=== PATIENT | male | born 1955 | race Caucasian/White ===

== ENCOUNTER 2016-08-12 12:27 | Inpatient (IN) | payer BC ==
[2016-08-12] MEDS ORDERED: Aspirin 81 MG Tab.Chew PO ONE (12:31)
--- NOTE | 2016-08-12 12:47 | EDM.PDOC ---
[id number] Time Seen by Provider: 08/12/16 12:30 Source of Information: Reports: Patient History Limitations: Reports: No Limitations Mid-Sternal Chest Pain Score (Numeric/FACES): 2 - Related Data Allergies Allergy/AdvReac Type Severity Reaction Status Date / Time No Known Allergies Allergy Verified 08/12/16 13:12 Home Meds: Home Meds . [No Known Home Meds] 08/12/16 [History] ED ROS GENERAL - Review of Systems Review Of Systems: See Below (History of present illness) ED EXAM, GENERAL - Physical Exam Exam: See Below (History of present illness) Exam Limited By: No Limitations General Appearance: Alert Course - Vital Signs Last Recorded V/S: Last Vital Signs Temp 36.6 C 08/13/16 08:00 Pulse 58 L 08/13/16 08:21 Resp 14 08/13/16 09:00 BP 109/70 08/13/16 09:00 Pulse Ox 99 08/13/16 09:00 - Orders/Labs/Meds Labs: Laboratory Tests 08/12/16 08/12/16 08/12/16 Range/Units 12:25 12:25 12:25 WBC 12.29 H (4.0-11.0) K/uL RBC 5.04 (4.50-5.90) M/uL Hgb 14.3 (13.0-17.0) g/dL Hct 44.0 (38.0-50.0) % MCV 87.3 (80.0-98.0) fL MCH 28.4 (27.0-32.0) pg MCHC 32.5 (31.0-37.0) g/dL RDW Std Deviation 43.1 (28.0-62.0) fl RDW Coeff of Elli 14 (11.0-15.0) % Plt Count 240 (150-400) K/uL MPV 9.30 (7.40-12.00) fL Neut % (Auto) 66.6 (48.0-80.0) % Lymph % (Auto) 24.6 (16.0-40.0) % [place] % (Auto) 6.8 (0.0-15.0) % Eos % (Auto) 1.6 (0.0-7.0) % Baso % (Auto) 0.4 (0.0-1.5) % Neut # (Auto) 8.2 H (1.4-5.7) K/uL Lymph # (Auto) 3.0 H (0.6-2.4) K/uL [place] # (Auto) 0.8 (0.0-0.8) K/uL Eos # (Auto) 0.2 (0.0-0.7) K/uL Baso # (Auto) 0.1 (0.0-0.1) K/uL Nucleated RBC % 0.0 /100WBC Nucleated RBCs # 0 K/uL Sodium 137 (136-146) mmol/L Potassium 4.2 (3.5-5.1) mmol/L Chloride 105 (98-110) mmol/L Carbon Dioxide 23 (21-31) mmol/L BUN 13 (6.0-23.0) mg/dL Creatinine 0.9 (0.6-1.5) mg/dL Est Cr Clr Drug Dosing 71.26 mL/min Estimated GFR (MDRD) > 60.0 ml/min Glucose 93 (60-110) mg/dL Calcium 9.3 (8.8-10.8) mg/dL Total Bilirubin 0.3 (0.1-1.5) mg/dL AST 13 (5-40) IU/L ALT 12 (8-54) IU/L Alkaline Phosphatase 63 (40-150) Troponin I < 0.10 (0.0-0.29) NG/ML Total Protein 7.6 (6.0-8.0) g/dL Albumin 4.2 (3.4-4.8) g/dL Globulin 3.4 (2.0-3.5) g/dL Albumin/Globulin Ratio 1.2 L (1.3-2.8) Triglycerides (10-190) mg/dL Cholesterol (131-240) mg/dL LDL Cholesterol, Calc (60-180) mg/dL VLDL Cholesterol (5-55) mg/dL HDL Cholesterol (40-80) mg/dL Cholesterol/HDL Ratio (3.3-6.0) // Range/Units 12:25 WBC (4.0-11.0) K/uL RBC (4.50-5.90) M/uL Hgb (13.0-17.0) g/dL Hct (38.0-50.0) % MCV (80.0-98.0) fL MCH (27.0-32.0) pg MCHC (31.0-37.0) g/dL RDW Std Deviation (28.0-62.0) fl RDW Coeff of Elli (11.0-15.0) % Plt Count (150-400) K/uL MPV (7.40-12.00) fL Neut % (Auto) (48.0-80.0) % Lymph % (Auto) (16.0-40.0) % [place] % (Auto) (0.0-15.0) % Eos % (Auto) (0.0-7.0) % Baso % (Auto) (0.0-1.5) % Neut # (Auto) (1.4-5.7) K/uL Lymph # (Auto) (0.6-2.4) K/uL [place] # (Auto) (0.0-0.8) K/uL Eos # (Auto) (0.0-0.7) K/uL Baso # (Auto) (0.0-0.1) K/uL Nucleated RBC % /100WBC Nucleated RBCs # K/uL Sodium (136-146) mmol/L Potassium (3.5-5.1) mmol/L Chloride (98-110) mmol/L Carbon Dioxide (21-31) mmol/L BUN (6.0-23.0) mg/dL Creatinine (0.6-1.5) mg/dL Est Cr Clr Drug Dosing mL/min Estimated GFR (MDRD) ml/min Glucose (60-110) mg/dL Calcium (8.8-10.8) mg/dL Total Bilirubin (0.1-1.5) mg/dL AST (5-40) IU/L ALT (8-54) IU/L Alkaline Phosphatase (40-150) Troponin I (0.0-0.29) NG/ML Total Protein (6.0-8.0) g/dL Albumin (3.4-4.8) g/dL Globulin (2.0-3.5) g/dL Albumin/Globulin Ratio (1.3-2.8) Triglycerides 109 (10-190) mg/dL Cholesterol 243 H (131-240) mg/dL LDL Cholesterol, Calc 174 (60-180) mg/dL VLDL Cholesterol 22 (5-55) mg/dL HDL Cholesterol 47 (40-80) mg/dL Cholesterol/HDL Ratio 5.2 (3.3-6.0) Meds: Medications Discontinued Medications Generic Name Dose Route Start Last Admin Trade Name Freq PRN Reason Stop Dose Admin Aspirin 324 mg 08/12/16 12:31 08/12/16 12:46 Aspirin PO 08/12/16 12:32 324 mg ONETIME ONE Administration Aspirin 81 mg 08/13/16 09:00 08/13/16 08:21 Aspirin PO 81 mg DAILY [facility] Administration Atorvastatin Calcium 80 mg 08/12/16 21:00 08/12/16 20:02 Lipitor PO 80 mg BEDTIME [facility] Administration Clopidogrel Bisulfate 600 mg 08/12/16 18:13 08/12/16 19:17 Plavix PO 08/12/16 18:14 600 mg ONETIME ONE Administration Clopidogrel Bisulfate 75 mg 08/13/16 09:00 08/13/16 08:21 Plavix PO 75 mg DAILY [facility] Administration Enoxaparin Sodium 40 mg 08/12/16 21:00 Lovenox SUBCUT Q12HR [facility] Heparin Sodium (Porcine) 5,000 units 08/12/16 18:30 08/12/16 19:17 Heparin Sodium IV 08/12/16 18:31 5,000 units ONETIME ONE Administration Heparin Sodium (Porcine) 1,000 units 08/13/16 01:02 08/13/16 01:12 Heparin Sodium IVPUSH 08/13/16 01:03 1,000 units .BOLUS ONE Administration Heparin Sodium (Porcine) 1,000 unit 08/13/16 08:15 Heparin Sodium IV 08/13/16 08:16 ONETIME ONE Heparin Sodium (Porcine) 1,000 units 08/13/16 08:15 08/13/16 08:20 Heparin Sodium IV 08/13/16 08:16 1,000 units ONETIME ONE Administration Heparin Sodium/Dextrose 25,000 units in 500 mls @ 16.44 mls/hr 08/12/16 18:15 Heparin 25,000 Units In D5w 500 Ml IV TITRATE JONO Protocol 12 UNITS/KG/HR Heparin Sodium (Porcine) 25, 505 mls @ 16.6 mls/hr 08/12/16 19:06 08/13/16 08 :20 000 units/ Dextrose/Water IV 16 units/kg/hr TITRATE JONO 22.13 mls/hr Protocol Titration 12 UNITS/KG/HR Metoprolol Tartrate 25 mg 08/12/16 21:00 08/13/16 08:21 Lopressor PO 25 mg Q12HR JONO Administration Nitroglycerin 1 gm 08/12/16 12:59 08/12/16 13:03 Nitro-Bid 2% TOP 08/12/16 13:00 1 gm ONETIME ONE Administration Departure - Departure Time of Disposition: 09:00 Disposition: Refer to Observation Reason for Transfer *Q: Other Condition: Good Clinical Impression: Chest pain ED HISTORY OF PRESENT ILLNESS - General Chief Complaint: Chest Pain Stated Complaint: HEART COMPLICATIONS Time Seen by Provider: 08/12/16 12:30 Source of Information: Reports: Patient History Limitations: Reports: No Limitations - History of Present Illness INITIAL COMMENTS - FREE TEXT/NARRATIVE: HISTORY AND PHYSICAL: History of present illness: [61-year-old male with a very long history of smoking now presents emergency department complaining of chest pain. Patient has never had hypertension high cholesterol diabetes and has no known family history of coronary artery disease except for one cousin. 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 He has no doctor here as he is from [place]. Mid chest pain is dull achy pain that is worse with exertion and associated with apheresis and shortness of breath but no nausea or vomiting. pain does not radiate. No productive cough or fever and no pleuritic pain. Review of systems: As per history of present illness and below otherwise all systems reviewed and negative. Past medical history: As per history of present illness and as reviewed below otherwise noncontributory. Surgical history: As per history of present illness and as reviewed below otherwise noncontributory. Social history: No reported history of drug or alcohol abuse. Family history: As per history of present illness and as reviewed below otherwise noncontributory. Physical exam: HEENT: Atraumatic, normocephalic, pupils reactive, negative for conjunctival pallor or scleral icterus, mucous membranes moist, throat clear, neck supple, nontender, trachea midline. Lungs: Clear to auscultation, breath sounds equal bilaterally, chest nontender. No Subcutaneous air Heart: S1S2, regular, negative for clicks, rubs, or JVD. Abdomen: Soft, nondistended, nontender. Negative for masses or hepatosplenomegaly. Negative for costovertebral tenderness. Pelvis: Stable nontender. Genitourinary: Deferred. Rectal: Deferred. Extremities: Atraumatic, negative for cords or calf pain. Neurovascular unremarkable. Neuro: Awake, alert, oriented. Motor and sensory unremarkable throughout. Exam nonfocal. Diagnostics: [EKG with normal sinus rhythm at 60 left axis deviation and no STEMI] Chest x-ray with chronic changes hyperinflation normal mediastinum and no cardiomegaly. Interpreted by me Troponin negative Therapeutics: [] Impression: [] Plan: [Signs and symptoms consistent with chest pain possible cardiac etiology in a patient with no prior cardiac workup and multiple risk factors as well as maleness and age of 61. She unremarkable. Aspirin given. Labs and troponin pending. Case discussed with Dr. Chu hospitalist information assurance officer who is aware of history and findings and agrees with observation telemetry admission to his service. Patient is stable smiling and comfortable appearing.] Definitive disposition and diagnosis as appropriate pending reevaluation and review of above. - Related Data Allergies/ADRs: Allergies Allergy/AdvReac Type Severity Reaction Status Date / Time No Known Allergies Allergy Verified 08/12/16 13:12 Home Meds: Home Meds . [No Known Home Meds] 08/12/16 [History]
[2016-08-12] MEDS ORDERED: Nitroglycerin 2% Oint 1 GM UD Packet TOP ONE (12:59)
--- NOTE | 2016-08-12 13:01 | CR ---
EXAMINATION: Portable chest radiograph. HISTORY: Chest pain. FINDINGS: The trachea is midline. The cardiomediastinal silhouette is within normal limits. No pulmonary infil trates, effusions or pneumothorax. Osseous structures appear unremarkable. IMPRESSION: No acute cardiopulmonary process.
[2016-08-12 13:15] LABS: CHLORIDE,CL 105 mmol/L (98-110); SODIUM,NA 137 mmol/L (136-146)
--- NOTE | 2016-08-12 14:21 | PCM.HP ---
H&P History of Present Illness - General Date of Service: 08/12/16 Admit Problem/Dx: Admission Diagnosis/Problem Admission Diagnosis/Problem Chest pain Source of Information: Patient History Limitations: Reports: No limitations - History of Present Illness Initial Comments - Free Text/Narative: 61 y o man with remote history of elevated cholesterol without therapy notes recnt onset of central chest pain, quite severe , associated with some weakness stopping him in his tracks and profuse diaphoresis, Came on climbing flight of stair to ta ke shower at truck stop Had to rest up before showering. Other times he had to lie down 15 minutes before pain let up. Not aware of any unusual heart action Duration of Symptoms: Reports: Minutes: (15-20) Quality: Reports: Ache, Dull Severity: severe Improves with: Reports: Rest Worsens with: Reports: None Associated Symptoms: Reports: diaphoresis, weakness Mid-Sternal Chest Pain Score (Numeric/FACES): 2 - Related Data Allergies/Adverse Reactions: Allergies Allergy/AdvReac Type Severity Reaction Status Date / Time No Known Allergies Allergy Verified 08/12/16 13:12 Home Medications: Home Meds . [No Known Home Meds] 08/12/16 [History] Past Medical History - Past Health History Medical/Surgical History: Denies Medical/Surgical History Musculoskeletal History: Reports: Back pain, chronic - Infectious Disease History Infectious Disease History: Reports: Chicken pox, Measles, Mumps Social & Family History - Family History Family Medical History: Noncontributory - Tobacco Use Smoking Status *Q: Current Every Day Smoker Years of Tobacco use: 15 Packs/Tins Daily: 1 - Alcohol Use Alcohol Use History: Yes Days Per Week of Alcohol Use: 1 - Recreational Drug Use Recreational Drug Use: No - Living Situation & Occupation 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, 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, 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) H&P Review of Systems - Review of Systems: Review Of Systems: See Below General: Reports: fatigue HEENT: Reports: no symptoms Pulmonary: Reports: No Symptoms Cardiovascular: Reports: chest pain Gastrointestinal: Reports: No symptoms Genitourinary: Reports: no symptoms Musculoskeletal: Reports: no symptoms Skin: Reports: no symptoms, diaphoresis Psychiatric: Reports: no symptoms Neurological: Reports: No Symptoms Hematologic/Lymphatic: Reports: no symptoms Immunologic: Reports: no symptoms Exam - Exam Exam: See Below - Vital Signs Vital Signs: Last Vital Signs Temp 36.8 C 08/12/16 12:29 Pulse 64 08/12/16 13:41 Resp 16 08/12/16 13:41 BP 126/80 08/12/16 13:41 Pulse Ox 99 08/12/16 13:41 Weight: 68.5 kg - Exam General: alert, oriented HEENT: Conjunctiva clear Neck: supple, 2+ carotid pulse wo bruit Lungs: Decreased breath sounds Cardiovascular: regular rate, regular rhythm Abdomen: normal bowel sounds, soft (Male) Exam: Deferred Rectal (Males) Exam: Deferred Back Exam: other (loss of lumbar lordosis) Extremities: normal inspection Skin: warm Neurological: cranial nerves intact Neuro Extensive - Mental Status: alert, oriented x3 Psychiatric: alert, normal affect - Patient Data Result Diagrams: 08/12/16 12:25 08/12/16 12:25 EKG INTERPRETATION Rhythm: NSR [place]: normal P-wave: present QRS: normal ST-T: normal QT: normal *Q Meaningful Use (ADM) - VTE *Q VTE Criteria *Q: - Stroke *Q Stroke Criteria *Q: - AMI *Q AMI Criteria *Q: Problem List Initiated/Reviewed/Updated: Yes Orders Last 24hrs: Active Orders 24 hr Category Date Time Status EKG Documentation Completion [RC] DAILY Care 08/12/16 13:55 Active Notify Provider Consults [RC] ASDIRECTED Care 08/12/16 14:06 Active Oxygen Therapy [RC] PRN Care 08/12/16 13:55 Active VTE/DVT Education [RC] PER UNIT ROUTINE Care 08/12/16 13:55 Active Vital Signs [RC] Q4H Care 08/12/16 13:55 Active Consult to Physician [CONS] Routine Cons 08/12/16 13:55 Active TROPONIN I [CHEM] Routine Lab 08/12/16 13:55 Ordered Enoxaparin [Lovenox] Med 08/12/16 21:00 Active 40 mg SUBCUT Q12HR Resuscitation Status Routine Resus Stat 08/12/16 13:55 Ordered Medication Orders Enoxaparin Sodium (Lovenox) 40 mg SUBCUT Q12HR JONO Assessment/Plan Comment:: chest pain consistent with crescendo angina continue aspirin NTG paste add beta-khushbu cardiology consult in view of severity of symptoms history hyperlipidemia check labs smoking offer nicotine replacement
[2016-08-12] MEDS ORDERED: Clopidogrel 75 MG Tab PO ONE (18:13)
[2016-08-12] MEDS ORDERED: Heparin Sodium/D5W 25,000 UNITS/500 ML BAG IV SCH (18:15)
[2016-08-12] MEDS ORDERED: Heparin Sodium 5,000 Units/ML Vial IV ONE (18:30)
[2016-08-12] MEDS ORDERED: Heparin Sodium 25,000 UNITS in Dextrose 5% in Water 500 ML IV SCH ×2 (19:06)
[2016-08-12] MEDS: Metoprolol Tartrate 25 MG Tab PO SCH (20:03)
[2016-08-12] MEDS ORDERED: Enoxaparin 40 MG/0.4 ML Syringe SUBCUT SCH (21:00)
[2016-08-12] MEDS ORDERED: atorvaSTATin 40 MG Tab PO SCH (21:00)
--- NOTE | 2016-08-13 00:10 | CONS ---
DATE OF CONSULTATION: 08/12/2016 DATE OF : 1955 PRIMARY CARE PHYSICIAN: None PCP REASON FOR CONSULTATION: Chest pain. HISTORY OF PRESENT ILLNESS: This is a 61-year-old male with history of high cholesterol in the past, active smoking, presented to hospital with recurrent chest pain. 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 It was very severe pain like 10 from 10 pain scale with sweating. No radiation and he stated that when he walks about 300 feet, the pain got worse. He feels some short of breath. No heart racing, however, he has some sweating. He never had that severe chest pain before. He felt like he close to passed out and it lasted for 5 minutes. On the day that he came to the emergency room, he has another chest pain episode, which is similar to the time that he had like a week ago. That was the 3rd time and then he decided to come to the emergency room by himself. Otherwise, he denied any leg swelling, orthopnea, or PND. No abdominal pain, fever, nausea, or vomiting. ALLERGIES: No known drug allergies. PAST MEDICAL HISTORY: Including high cholesterol. SOCIAL HISTORY: Occasional drinking, active smoking one pack per day for 15 years. No drug use. FAMILY HISTORY: No family history of CAD. 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 EMERGENCY ROOM COURSE: He was given aspirin 325 mg, also metoprolol 25 mg twice a day was started. PHYSICAL EXAMINATION: VITAL SIGNS: The blood pressure 120/80, heart rate of 50s to 60s, temperature 37, O2 saturation 98 on room air, respirations 16. HEENT: Not pale. No jaundice. No JVD. No carotid bruit. HEART: Normal S1, S2. No faint systolic murmur. LUNGS: Clear. ABDOMEN: Soft, nontender. Bowel sounds present. No hepatosplenomegaly. EXTREMITIES: Legs, no edema. Equal pulses. LABORATORY INVESTIGATIONS: CBC showed WBC 12, hematocrit 44, hemoglobin 14, sodium 137, potassium 4.2, chloride 105, bicarb 23, BUN 13, creatinine 0.9. Troponin is negative x1. Total cholesterol 243, LDL 174, HDL 47. EKG shows sinus rhythm, no ST changes, no Q-wave. Heart rate of 60. MI interval 168, QRS duration 98, QTc interval 370. ASSESSMENT AND PLAN: This is a 61-year-old male with history of hyperlipidemia and also active smoking presented with chest pain. His chest pain sounds like cardiac angina and he may experienced it before. It sounds like crescendo cardiac angina. I believe he has unstable angina currently. So far, EKG and troponin levels seemed to be unremarkable. I would treat him as his acute coronary syndrome by Plavix and aspirin and also IV heparin for 48 hours. He should be kept at least for two days and also EKG needs to be repeated as well as echocardiogram. If he started having recurrent chest pain or elevation of troponin or abnormal EKG, he should get urgent coronary angiogram done; however, if his troponin, EKG, and echocardiogram remained negative and he remained chest pain free, he should be able to be discharged and he preferred to have a stress test done around his home town. I instructed not to drive. I will follow him before the next day. FAISAL HESS /[id number]
[2016-08-13] MEDS ORDERED: Heparin Sodium 5,000 Units/ML Vial IVPUSH ONE (01:02)
[2016-08-13] MEDS ORDERED: Heparin Sodium 1,000 Units/ML MDV IV ONE (08:15)
[2016-08-13] MEDS ORDERED: Heparin Sodium 5,000 Units/ML Vial IV ONE (08:15)
[2016-08-13] MEDS: Metoprolol Tartrate 25 MG Tab PO SCH (08:21)
[2016-08-13] MEDS ORDERED: Clopidogrel 75 MG Tab PO SCH (09:00)
[2016-08-13] MEDS ORDERED: Aspirin 81 MG Tab.Chew PO SCH (09:00)
[2016-08-13 09:42] VITALS: BP 109/70
--- NOTE | 2016-08-13 10:34 | PCM.DCSUM1 ---
Addendum entered and electronically signed by Matt Cornell MD 08/13/16 10:39 : Discharge Summary - Hospital Course Brief History: Patient intially presented to ED with severe central chest pain with assoicated weakness, shortness of breath and diaphoresis but no nausea or vomiting. Over the previous 2 days he had intermittent exterional chest pain which was worse in the morning on day of admission. He initally had chest pain the day before while climbing a flight of stairs to take a shower at a truck stop. He had to rest before showering for several minutes before the chest pain was relieved. He also had another episode in which he had to lie down for 15 minutes before the pain was relieved. He denied history of hypertension, diabetes, or previous heart disease. He is from [place] and does not have a local physician. He denied any recent cold, cough, fever, chills or diarrhea. In ED, inital troponin was negative and ECG showed no significant signs of acute ischemia. - Discharge Data Discharge Date: 08/13/16 Discharge Disposition: DC/Tfer to Acute Hospital 02 Condition: Fair - Patient Summary/Data Consults: Consultations 08/12/16 13:55 Consult to Physician [CONS] Routine - Patient Instructions Diet: Heart Healthy Diet Other/Special Instructions: Transfer to [place]. Dr. Thurman accepting physician. No clot buster TNK as per Dr. Thurman. - Discharge Plan Home Medications: Home Meds . [No Known Home Meds] 08/12/16 [History] Patient Handouts: Nonspecific Chest Pain, [id number] - General Info Date of Service: 08/13/16 Admission Dx/Problem (Free Text: Admission Diagnosis/Problem Admission Diagnosis/Problem Chest pain Subjective Update: Having some central chest pain, no radiation, no shortness or breath, diaphoresis, or nausea and vomiting. Functional Status: Reports: pain controlled - Review of Systems General: Reports: Fatigue. Denies: Fever, Weakness HEENT: Denies: sinus congestion, sore throat Pulmonary: Denies: shortness of breath, pleuritic chest pain, hemoptysis Cardiovascular: Reports: Chest Pain. Denies: Palpitations, Edema Gastrointestinal: Denies: Abdominal pain, Constipation, Nausea, Vomiting Genitourinary: Denies: dysuria, hematuria Musculoskeletal: Denies: neck pain, leg pain Skin: Denies: cyanosis Neurological: Denies: Confusion Psychiatric: Denies: confusion - Patient Data Vitals - Most Recent: Last Vital Signs Temp 36.6 C 08/13/16 08:00 Pulse 58 L 08/13/16 08:21 Resp 14 08/13/16 09:00 BP 109/70 08/13/16 09:00 Pulse Ox 99 08/13/16 09:00 Weight - Most Recent: 66.7 kg I&O - Last 24 hours: Intake & Output 08/12/16 08/13/16 08/13/16 22:59 06:59 14:59 Intake Total 250 Output Total 450 Balance -200 Lab Results - Last 24 hrs: Laboratory Results - last 24 hr 08/12/16 08/12/16 08/12/16 Range/Units 18:31 18:31 18:31 WBC (4.0-11.0) K/uL RBC (4.50-5.90) M/uL Hgb (13.0-17.0) g/dL Hct (38.0-50.0) % MCV (80.0-98.0) fL MCH (27.0-32.0) pg MCHC (31.0-37.0) g/dL RDW Std Deviation (28.0-62.0) fl RDW Coeff of Elli (11.0-15.0) % Plt Count (150-400) K/uL MPV (7.40-12.00) fL Neut % (Auto) (48.0-80.0) % Lymph % (Auto) (16.0-40.0) % Eaton % (Auto) (0.0-15.0) % Eos % (Auto) (0.0-7.0) % Baso % (Auto) (0.0-1.5) % Neut # (Auto) (1.4-5.7) K/uL Lymph # (Auto) (0.6-2.4) K/uL Eaton # (Auto) (0.0-0.8) K/uL Eos # (Auto) (0.0-0.7) K/uL Baso # (Auto) (0.0-0.1) K/uL Nucleated RBC % /100WBC Nucleated RBCs # K/uL INR 1.01 (0.86-1.11) APTT 29.2 (18.6-31.3) SEC Hemoglobin A1c (0.0-6.0) % Troponin I < 0.10 (0.0-0.29) NG/ML 08/13/16 08/13/16 08/13/16 Range/Units 00:25 00:25 04:54 WBC (4.0-11.0) K/uL RBC (4.50-5.90) M/uL Hgb (13.0-17.0) g/dL Hct (38.0-50.0) % MCV (80.0-98.0) fL MCH (27.0-32.0) pg MCHC (31.0-37.0) g/dL RDW Std Deviation (28.0-62.0) fl RDW Coeff of Elli (11.0-15.0) % Plt Count (150-400) K/uL MPV (7.40-12.00) fL Neut % (Auto) (48.0-80.0) % Lymph % (Auto) (16.0-40.0) % Eaton % (Auto) (0.0-15.0) % Eos % (Auto) (0.0-7.0) % Baso % (Auto) (0.0-1.5) % Neut # (Auto) (1.4-5.7) K/uL Lymph # (Auto) (0.6-2.4) K/uL Eaton # (Auto) (0.0-0.8) K/uL Eos # (Auto) (0.0-0.7) K/uL Baso # (Auto) (0.0-0.1) K/uL Nucleated RBC % /100WBC Nucleated RBCs # K/uL INR (0.86-1.11) APTT 38.0 H (18.6-31.3) SEC Hemoglobin A1c (0.0-6.0) % Troponin I < 0.10 < 0.10 (0.0-0.29) NG/ML 08/13/16 08/13/16 08/13/16 Range/Units 04:54 04:54 07:09 WBC 11.42 H (4.0-11.0) K/uL RBC 4.91 (4.50-5.90) M/uL Hgb 14.0 (13.0-17.0) g/dL Hct 42.6 (38.0-50.0) % MCV 86.8 (80.0-98.0) fL MCH 28.5 (27.0-32.0) pg MCHC 32.9 (31.0-37.0) g/dL RDW Std Deviation 42.6 (28.0-62.0) fl RDW Coeff of Elli 14 (11.0-15.0) % Plt Count 193 (150-400) K/uL MPV 9.50 (7.40-12.00) fL Neut % (Auto) 66.2 (48.0-80.0) % Lymph % (Auto) 25.3 (16.0-40.0) % Eaton % (Auto) 6.3 (0.0-15.0) % Eos % (Auto) 1.8 (0.0-7.0) % Baso % (Auto) 0.4 (0.0-1.5) % Neut # (Auto) 7.6 H (1.4-5.7) K/uL Lymph # (Auto) 2.9 H (0.6-2.4) K/uL Eaton # (Auto) 0.7 (0.0-0.8) K/uL Eos # (Auto) 0.2 (0.0-0.7) K/uL Baso # (Auto) 0.0 (0.0-0.1) K/uL Nucleated RBC % 0.0 /100WBC Nucleated RBCs # 0 K/uL INR (0.86-1.11) APTT 38.6 H (18.6-31.3) SEC Hemoglobin A1c 6.0 (0.0-6.0) % Troponin I (0.0-0.29) NG/ML Med Orders - Current: Current Medications Discontinued Medications Aspirin (Aspirin) 324 mg PO ONETIME ONE Stop: 08/12/16 12:32 Last Admin: 08/12/16 12:46 Dose: 324 mg Aspirin (Aspirin) 81 mg PO DAILY [facility] Last Admin: 08/13/16 08:21 Dose: 81 mg Atorvastatin Calcium (Lipitor) 80 mg PO BEDTIME [facility] Last Admin: 08/12/16 20:02 Dose: 80 mg Clopidogrel Bisulfate (Plavix) 600 mg PO ONETIME ONE Stop: 08/12/16 18:14 Last Admin: 08/12/16 19:17 Dose: 600 mg Clopidogrel Bisulfate (Plavix) 75 mg PO DAILY [facility] Last Admin: 08/13/16 08:21 Dose: 75 mg Enoxaparin Sodium (Lovenox) 40 mg SUBCUT Q12HR [facility] Heparin Sodium (Porcine) (Heparin Sodium) 5,000 units IV ONETIME ONE Stop: 08/12/16 18:31 Last Admin: 08/12/16 19:17 Dose: 5,000 units Heparin Sodium (Porcine) (Heparin Sodium) 1,000 units IVPUSH .BOLUS ONE Stop: 08/13/16 01:03 Last Admin: 08/13/16 01:12 Dose: 1,000 units Heparin Sodium (Porcine) (Heparin Sodium) 1,000 unit IV ONETIME ONE Stop: 08/13/16 08:16 Heparin Sodium (Porcine) (Heparin Sodium) 1,000 units IV ONETIME ONE Stop: 08/13/16 08:16 Last Admin: 08/13/16 08:20 Dose: 1,000 units Heparin Sodium/Dextrose (Heparin 25,000 Units In D5w 500 Ml) 25,000 units in 500 mls @ 16.44 mls/hr IV TITRATE JONO; 12 UNITS/KG/HR PRN Reason: Protocol Heparin Sodium (Porcine) 25, (000 units/ Dextrose/Water) 505 mls @ 16.6 mls/hr IV TITRATE JONO; 12 UNITS/KG/HR PRN Reason: Protocol Last Titration: 08/13/16 08:20 Dose: 16 units/kg/hr, 22.13 mls/hr Metoprolol Tartrate (Lopressor) 25 mg PO Q12HR [facility] Last Admin: 08/13/16 08:21 Dose: 25 mg Nitroglycerin (Nitro-Bid 2%) 1 gm TOP ONETIME ONE Stop: 08/12/16 13:00 Last Admin: 08/12/16 13:03 Dose: 1 gm - Exam Quality Assessment: Reports: supplemental oxygen, DVT prophylaxis General: Reports: alert, oriented, cooperative, no acute distress HEENT: Reports: Pupils equal, Pupils reactive, EOMI, Mucous membr. 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 Brief History: Patient intially presented to ED with severe central chest pain with assoicated weakness, shortness of breath and diaphoresis but no nausea or vomiting. Over the previous 2 days he had intermittent exterional chest pain which was worse in the morning on day of admission. He initally had chest pain the day before while climbing a flight of stairs to take a shower at a truck stop. He had to rest before showering for several minutes before the chest pain was relieved. He also had another episode in which he had to lie down for 15 minutes before the pain was relieved. He denied history of hypertension, diabetes, or previous heart disease. He is from [place] and does not have a local physician. He denied any recent cold, cough, fever, chills or diarrhea. In ED, inital troponin was negative and ECG showed no significant signs of acute ischemia. - Discharge Data Discharge Date: 08/13/16 Discharge Disposition: DC/Tfer to Acute Hospital 02 Condition: Good - Patient Summary/Data Consults: Consultations 08/12/16 13:55 Consult to Physician [CONS] Routine Hospital Course: See below summary. - Patient Instructions Diet: Heart Healthy Diet - Discharge Plan Home Medications: Home Meds . 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 Patient intially presented to ED with severe central chest pain with assoicated weakness, shortness of breath and diaphoresis but no nausea or vomiting. Over the previous 2 days he had intermittent exterional chest pain which was worse in the morning on day of admission. He initally had chest pain the day before while climbing a flight of stairs to take a shower at a truck stop. He had to rest before showering for several minutes before the chest pain was relieved. He also had another episode in which he had to lie down for 15 minutes before the pain was relieved. He denied history of hypertension, diabetes, or previous heart disease. He is from [place] and does not have a local physician. He denied any recent cold, cough, fever, chills or diarrhea. In ED, inital troponin was negative and ECG showed no significant signs of acute ischemia. Patient was admitted for observation on telemetry with serial troponins. Secondary to his history it was thought that he had crescendo cardiac angina, unstable angina and cardiology was consulted. Dr. Tobar, power plant operators supervisor, saw the patient on day of admission and agreed that he had unstable angina and recommended treating him as acute cornary syndrome by adding Plavix, aspirin and IV heparin for 48 hours with repeat ECG and echocardiogram. On morning of transfer, patient again experienced central chest pain (2/10). Repeat ECG showed changes with t wave inversion in the anterioseptal leads as well as minimal ST elevation in the inferior leads. Dr. Tobar reviewed the ECG and recommended transfer for cardiac angio. Dr. Thurman, cardiology [place], was consulted, reviewed ECG and recommended against clot buster (TNK), but did recommend transfer. Dr. Thurman did accept the patinet and he was transfered by air for definitive treatment of his unstable angina/ acute cornary syndrome. - Patient Data Vitals - Most Recent: Last Vital Signs Temp 36.6 C 08/13/16 08:00 Pulse 58 L 08/13/16 08:21 Resp 14 08/13/16 09:00 BP 109/70 08/13/16 09:00 Pulse Ox 99 08/13/16 09:00 Weight - Most Recent: 66.7 kg I&O - Last 24 hours: Intake & Output 08/12/16 08/13/16 08/13/16 22:59 06:59 14:59 Intake Total 250 Output Total 450 Balance -200 Lab Results - Last 24 hrs: Laboratory Results - last 24 hr 08/12/16 08/12/16 08/12/16 Range/Units 18:31 18:31 18:31 WBC (4.0-11.0) K/uL RBC (4.50-5.90) M/uL Hgb (13.0-17.0) g/dL Hct (38.0-50.0) % MCV (80.0-98.0) fL MCH (27.0-32.0) pg MCHC (31.0-37.0) g/dL RDW Std Deviation (28.0-62.0) fl RDW Coeff of Elli (11.0-15.0) % Plt Count (150-400) K/uL MPV (7.40-12.00) fL Neut % (Auto) (48.0-80.0) % Lymph % (Auto) (16.0-40.0) % Eaton % (Auto) (0.0-15.0) % Eos % (Auto) (0.0-7.0) % Baso % (Auto) (0.0-1.5) % Neut # (Auto) (1.4-5.7) K/uL Lymph # (Auto) (0.6-2.4) K/uL Eaton # (Auto) (0.0-0.8) K/uL Eos # (Auto) (0.0-0.7) K/uL Baso # (Auto) (0.0-0.1) K/uL Nucleated RBC % /100WBC Nucleated RBCs # K/uL INR 1.01 (0.86-1.11) APTT 29.2 (18.6-31.3) SEC Hemoglobin A1c (0.0-6.0) % Troponin I < 0.10 (0.0-0.29) NG/ML 08/13/16 08/13/16 08/13/16 Range/Units 00:25 00:25 04:54 WBC (4.0-11.0) K/uL RBC (4.50-5.90) M/uL Hgb (13.0-17.0) g/dL Hct (38.0-50.0) % MCV (80.0-98.0) fL MCH (27.0-32.0) pg MCHC (31.0-37.0) g/dL RDW Std Deviation (28.0-62.0) fl RDW Coeff of Elli (11.0-15.0) % Plt Count (150-400) K/uL MPV (7.40-12.00) fL Neut % (Auto) (48.0-80.0) % Lymph % (Auto) (16.0-40.0) % Eaton % (Auto) (0.0-15.0) % Eos % (Auto) (0.0-7.0) % Baso % (Auto) (0.0-1.5) % Neut # (Auto) (1.4-5.7) K/uL Lymph # (Auto) (0.6-2.4) K/uL Eaton # (Auto) (0.0-0.8) K/uL Eos # (Auto) (0.0-0.7) K/uL Baso # (Auto) (0.0-0.1) K/uL Nucleated RBC % /100WBC Nucleated RBCs # K/uL INR (0.86-1.11) APTT 38.0 H (18.6-31.3) SEC Hemoglobin A1c (0.0-6.0) % Troponin I < 0.10 < 0.10 (0.0-0.29) NG/ML 08/13/16 08/13/16 08/13/16 Range/Units 04:54 04:54 07:09 WBC 11.42 H (4.0-11.0) K/uL RBC 4.91 (4.50-5.90) M/uL Hgb 14.0 (13.0-17.0) g/dL Hct 42.6 (38.0-50.0) % MCV 86.8 (80.0-98.0) fL MCH 28.5 (27.0-32.0) pg MCHC 32.9 (31.0-37.0) g/dL RDW Std Deviation 42.6 (28.0-62.0) fl RDW Coeff of Elli 14 (11.0-15.0) % Plt Count 193 (150-400) K/uL MPV 9.50 (7.40-12.00) fL Neut % (Auto) 66.2 (48.0-80.0) % Lymph % (Auto) 25.3 (16.0-40.0) % Eaton % (Auto) 6.3 (0.0-15.0) % Eos % (Auto) 1.8 (0.0-7.0) % Baso % (Auto) 0.4 (0.0-1.5) % Neut # (Auto) 7.6 H (1.4-5.7) K/uL Lymph # (Auto) 2.9 H (0.6-2.4) K/uL Eaton # (Auto) 0.7 (0.0-0.8) K/uL Eos # (Auto) 0.2 (0.0-0.7) K/uL Baso # (Auto) 0.0 (0.0-0.1) K/uL Nucleated RBC % 0.0 /100WBC Nucleated RBCs # 0 K/uL INR (0.86-1.11) APTT 38.6 H (18.6-31.3) SEC Hemoglobin A1c 6.0 (0.0-6.0) % Troponin I (0.0-0.29) NG/ML Med Orders - Current: Current Medications Discontinued Medications Aspirin (Aspirin) 324 mg PO ONETIME ONE Stop: 08/12/16 12:32 Last Admin: 08/12/16 12:46 Dose: 324 mg Aspirin (Aspirin) 81 mg PO DAILY [facility] Last Admin: 08/13/16 08:21 Dose: 81 mg Atorvastatin Calcium (Lipitor) 80 mg PO BEDTIME [facility] Last Admin: 08/12/16 20:02 Dose: 80 mg Clopidogrel Bisulfate (Plavix) 600 mg PO ONETIME ONE Stop: 08/12/16 18:14 Last Admin: 08/12/16 19:17 Dose: 600 mg Clopidogrel Bisulfate (Plavix) 75 mg PO DAILY [facility] Last Admin: 08/13/16 08:21 Dose: 75 mg Enoxaparin Sodium (Lovenox) 40 mg SUBCUT Q12HR [facility] Heparin Sodium (Porcine) (Heparin Sodium) 5,000 units IV ONETIME ONE Stop: 08/12/16 18:31 Last Admin: 08/12/16 19:17 Dose: 5,000 units Heparin Sodium (Porcine) (Heparin Sodium) 1,000 units IVPUSH .BOLUS ONE Stop: 08/13/16 01:03 Last Admin: 08/13/16 01:12 Dose: 1,000 units Heparin Sodium (Porcine) (Heparin Sodium) 1,000 unit IV ONETIME ONE Stop: 08/13/16 08:16 Heparin Sodium (Porcine) (Heparin Sodium) 1,000 units IV ONETIME ONE Stop: 08/13/16 08:16 Last Admin: 08/13/16 08:20 Dose: 1,000 units Heparin Sodium/Dextrose (Heparin 25,000 Units In D5w 500 Ml) 25,000 units in 500 mls @ 16.44 mls/hr IV TITRATE [facility]ONO; 12 UNITS/KG/HR PRN Reason: Protocol Heparin Sodium (Porcine) 25, (000 units/ Dextrose/Water) 505 mls @ 16.6 mls/hr IV TITRATE [facility]ONO; 12 UNITS/KG/HR PRN Reason: Protocol Last Titration: 08/13/16 08:20 Dose: 16 units/kg/hr, 22.13 mls/hr Metoprolol Tartrate (Lopressor) 25 mg PO Q12HR [facility] Last Admin: 08/13/16 08:21 Dose: 25 mg Nitroglycerin (Nitro-Bid 2%) 1 gm TOP ONETIME ONE Stop: 08/12/16 13:00 Last Admin: 08/12/16 13:03 Dose: 1 gm *Q Meaningful Use (DIS) - VTE *Q VTE Criteria *Q: - Stroke *Q Stroke Criteria *Q: - AMI *Q AMI Criteria *Q:
--- NOTE | 2016-08-17 15:29 | ECHO ---
EXAM DATE: 08/12/16 The echocardiogram report can be seen in this patient's EMR (Electronic Medical Record) in the Reports section. HERACLIO
== END 2016-08-13 09:45 | DRG 198 ==
LOC: MW.ED 12:27 → MW.ICU 12:57 → OBSVTOIN 12:57 → MW.ED 13:34 → MW.ICU 18:44
PROVIDERS: ADMIT Internal Medicine; ATTEND Internal Medicine
DX: I20.0 Unstable angina (principal); E78.5 Hyperlipidemia, unspecified; F17.200 Nicotine dependence, unspecified, uncomplicated
CPT/HCPCS: 36415; 71010; 71010-26; 80053; 80061; 83036; 84484; 85025; 85610; 85730; 93005; 93306; 99285; 99285-25; A9270-GY; J1644; J7060